=== PATIENT | male | born 1985 | race Caucasian/White ===

== ENCOUNTER 2017-04-04 14:17 | Emergency (ER) | payer MEDICAID, OTHER ==
[~2017-04-04 14:17] MED LIST: AGM875T PO; DOXY-13 PO; HYDR-3583 PO; NAPR-243 PO; TRAM-21 PO
== END 2017-04-04 14:34 | disposition left against medical advice (07) ==
LOC: EDUNIT# 14:17 → ER 14:19
DX: J11.1 Influenza due to unidentified influenza virus with other respiratory manifestations (principal)